=== PATIENT | female | born 1980 | race Caucasian/White ===

== ENCOUNTER 2021-12-16 08:09 | Outpatient (CLI) | payer OTHER, SELFPAY ==
[2021-12-16 13:14] LABS: Potassium* 4.7 mmol/L (3.6-5.1); Sodium* 136 mmol/L (135-149)
[2021-12-16 13:16] LABS: Bilirubin Total* 0.3 mg/dL (0.1-1.5); Carbon Dioxide* 25 mmol/L (20-32); Cholesterol* 171 mg/dL (90-199); Creatinine* 0.9 mg/dL (0.5-1.5); Estimated Glomerular Filt Rate 82 ml/min
[2021-12-16 13:17] LABS: Alanine Aminotransferase* 16 U/L (4-35); Alkaline Phosphatase* 70 U/L (40-150); Blood Urea Nitrogen* 12 mg/dL (5-24); Calcium* 9.5 mg/dL (8.4-10.6); Glucose* 92 mg/dL (60-115); HDL Cholesterol* 51 mg/dL (>=50); LDL Cholesterol Calculated 104 mg/dL (<100); Triglycerides* 78 mg/dL (40-149)
[2021-12-16 13:21] LABS: Vitamin D 25 Hydroxy* 38 ng/mL (30-80)
[2021-12-16 13:49] LABS: Albumin* 4.5 g/dL (3.3-5.0); Chloride* 102 mmol/L (96-114)
[2021-12-16 14:00] LABS: Aspartate Amino Transferase* 21 U/L (12-35)
[2021-12-20 21:46] LABS: Vitamin K1 2.08 nmol/L (0.22-4.88)
== END 2021-12-16 08:10 | disposition home or self-care (01) ==
PROVIDERS: PCP Family Medicine; Visit Provider Family Medicine
DX: Z01.419 Encounter for gynecological examination (general) (routine) without abnormal findings (principal); E03.9 Hypothyroidism, unspecified; E56.1 Deficiency of vitamin K; E66.3 Overweight; R79.89 Other specified abnormal findings of blood chemistry; R53.83 Other fatigue; Z13.6 Encounter for screening for cardiovascular disorders
CPT/HCPCS: 80053; 80061; 82306; 84443; 84597

== ENCOUNTER 2022-03-20 09:05 | Outpatient (CLI) | payer OTHER, SELFPAY ==
--- NOTE | 2022-03-20 09:15 | CRLHL7_ITS ---
For Patients: As a result of the Cures Act, medical imaging exams and procedure reports are released immediately into your electronic medical record. You may view this report before your referring provider. If you have questions, please contact your health care provider. BILATERAL SCREENING MAMMOGRAM WITH COMPUTER-AIDED DETECTION AND TOMOSYNTHESIS TECHNIQUE: CC and MLO views were obtained. These mammographic images have been obtained using full-field digital technique. These mammographic images were interpreted with the benefit of computer-aided detection. Breast Tomosynthesis was used in this interpretation. COMPARISON FILM: 10/22/20, 11/13/18, 10/27/16. FINDINGS: The breasts are heterogeneously dense, which may obscure small masses IMPRESSION: There is no radiographic evidence for malignancy. ASSESSMENT: BI-RADS Category 1: Negative RECOMMENDATION: Routine screening mammogram in 1 year. A lay language report of this examination will be provided to the patient. SALEEM VELAZQUEZ M.D. Diagnostic/Nuclear Medicine Radiologist [email or web address] SONU:ashely Transcribed: 3:25 p.mLulú lund/Dictated by: Saleem Velazquez MD @ 03/20/2022 10:02:00 AM (Electronically Signed)
== END 2022-03-20 09:06 | disposition home or self-care (01) ==
LOC: MAMMO 09:06
PROVIDERS: PCP Family Medicine; Visit Provider Family Medicine
DX: Z12.31 Encounter for screening mammogram for malignant neoplasm of breast (principal); R92.2 Inconclusive mammogram
CPT/HCPCS: 77063; 77067

== ENCOUNTER 2023-08-10 08:14 | Outpatient (CLI) | payer OTHER, SELFPAY | END 2023-08-10 08:15 | disposition home or self-care (01) | PROVIDERS: PCP Family Medicine; Visit Provider Family Medicine | DX: E03.9 Hypothyroidism, unspecified (principal); E66.3 Overweight; Z13.228 Encounter for screening for other metabolic disorders | CPT/HCPCS: 80053; 84443 ==

== ENCOUNTER 2023-09-25 13:22 | Outpatient (CLI) | payer OTHER, SELFPAY ==
--- NOTE | 2023-09-25 13:40 | CRLHL7_ITS ---
For Patients: As a result of the Century Cures Act, medical imaging exams and procedure reports are released immediately into your electronic medical record. You may view this report before your referring provider. If you have questions, please contact your health care provider. BILATERAL SCREENING MAMMOGRAM WITH COMPUTER-AIDED DETECTION AND TOMOSYNTHESIS TECHNIQUE: CC and MLO views were obtained. These mammographic images have been obtained using full-field digital technique. These mammographic images were interpreted with the benefit of computer-aided detection. Breast Tomosynthesis was used in this interpretation. COMPARISON FILM: 10/22/20, 11/13/18, 10/27/16(RT ONLY). FINDINGS: There are scattered areas of fibroglandular density. IMPRESSION: There is no radiographic evidence for malignancy. ASSESSMENT: BI-RADS Category 1: Negative RECOMMENDATION: Routine screening mammogram in 1 year. A lay language report of this examination will be provided to the patient. Christiano Carlson M.D. Diagnostic Radiologist [email or web address] SP/Dictated by: Christiano Carlson MD @ 09/27/2023 10:02:00 AM (Electronically Signed)
== END 2023-09-25 13:23 | disposition home or self-care (01) ==
LOC: MAMMO 13:23
PROVIDERS: PCP Family Medicine; Visit Provider Family Medicine
DX: Z12.31 Encounter for screening mammogram for malignant neoplasm of breast (principal)
CPT/HCPCS: 77063; 77067

== ENCOUNTER 2024-04-25 08:39 | Outpatient (CLI) | payer BC, SELFPAY | END 2024-04-25 08:40 | disposition home or self-care (01) | PROVIDERS: PCP Family Medicine; Visit Provider Family Medicine | DX: E03.9 Hypothyroidism, unspecified (principal); R79.89 Other specified abnormal findings of blood chemistry; R53.83 Other fatigue; K59.00 Constipation, unspecified; E56.1 Deficiency of vitamin K; E66.3 Overweight; R63.5 Abnormal weight gain; F41.9 Anxiety disorder, unspecified | CPT/HCPCS: 80053; 80061; 82306; 84443 ==

== ENCOUNTER 2024-12-02 13:10 | Outpatient (CLI) | payer BC, SELFPAY ==
--- NOTE | 2024-12-02 13:20 | CRLHL7_ITS ---
For Patients: As a result of the Century Cures Act, medical imaging exams and procedure reports are released immediately into your electronic medical record. You may view this report before your referring provider. If you have questions, please contact your health care provider. INDICATION: BILATERAL SCREENING MAMMOGRAM, ASYMPTOMATIC 44 Y/O FEMALE COMPARISON: 09/25/2023, 03/20/2022, 10/22/2020 TECHNIQUE: Digital mammogram in CC and MLO projections including computer-aided detection (CAD) and tomosynthesis. BREAST COMPOSITION: There are scattered areas of fibroglandular density. FINDINGS: No suspicious findings. ASSESSMENT: BI-RADS 1 Negative RECOMMENDATION: Annual screening mammogram. A lay language report of this examination will be provided to the patient. Dictated by: Christiano Carlson MD @ 12/03/2024 08:35:44 (Electronically Signed)
== END 2024-12-02 13:11 | disposition home or self-care (01) ==
LOC: MAMMO 13:10
PROVIDERS: PCP Family Medicine; Visit Provider Family Medicine
DX: Z12.31 Encounter for screening mammogram for malignant neoplasm of breast (principal)
CPT/HCPCS: 77063; 77067

== ENCOUNTER 2024-12-10 15:17 | Outpatient (CLI) | payer BC, SELFPAY | END 2024-12-10 15:18 | disposition home or self-care (01) | LOC: LKVREF 15:18 | PROVIDERS: PCP Family Medicine | DX: K12.1 Other forms of stomatitis (principal) | CPT/HCPCS: 87252 ==

== ENCOUNTER 2025-01-20 08:07 | Outpatient (CLI) | payer OTHER, SELFPAY | END 2025-01-20 08:08 | disposition home or self-care (01) | PROVIDERS: PCP Family Medicine; Visit Provider Family Medicine | DX: E03.9 Hypothyroidism, unspecified (principal); E56.1 Deficiency of vitamin K; R53.83 Other fatigue; R79.89 Other specified abnormal findings of blood chemistry; Z78.9 Other specified health status | CPT/HCPCS: 80053; 82607; 82728; 83540; 83550; 84443; 84597 ==